=== PATIENT | male | born 1945 | race Hispanic/Latino ===

== ENCOUNTER 2017-08-13 06:12 | Day surgery (SDC) | payer MEDICARE, BC ==
[2017-08-08 12:33] VITALS: BMI 30.9
[2017-08-13] MEDS ORDERED: Lidocaine 2% Inj (20ml) ONE (06:42)
[2017-08-13] MEDS ORDERED: Midazolam 2 MG/2 ML VIAL ONE ×2 (06:43→07:16)
[2017-08-13] MEDS ORDERED: Phenylephrine 10 mg/ml Inj ONE (06:43)
[2017-08-13] MEDS ORDERED: Iodixanol 320 MG/ML 200 ML BOTTLE IV ONE (06:44)
[2017-08-13] MEDS ORDERED: Iodixanol 320 MG/ML 100 ML BOTTLE IV ONE (06:44)
[2017-08-13] MEDS ORDERED: Nitroglycerin 50mg in D5W 50 MG/250 ML BOTTLE IV ONE (06:44)
[2017-08-13] MEDS ORDERED: Iohexol 350mgl/ml 50 ML ONE (06:44)
[2017-08-13 06:56] LABS: BLOOD UREA NITROGEN 16 mg/dL (7-21); CALCIUM 9.4 mg/dL (8.4-10.5); GFR AFRICAN-AMERICAN > 60; GFR NON-AFRICAN AMERICAN > 60
[2017-08-13 07:00] LABS: BASO # 0.05 K/mm3 (0.0-2.0); BASO % 0.6 % (0.0-3.0); EOS # 0.4 (0.0-0.7); GRAN # 4.59 (1.4-6.5); GRAN % 55.5 % (50.0-68.0); HEMOGLOBIN 14.3 g/dL (14.0-18.0); LYMPH # 2.3 (1.2-3.4); LYMPH % 28.1 % (22.0-35.0); MEAN CELL VOLUME 89.5 fl (80.0-105.0); MEAN CORPUSCULAR HEMOGLOBIN 31.2 pg (25.0-35.0); MEAN CORPUSCULAR HGB CONC 34.8 g/dl (31.0-37.0); MEAN PLATELET VOLUME 9.5 fl (7.0-11.0); MONO # 0.9 (0.1-0.6); MONO % 10.8 % (1.0-6.0); RBC 4.59 10^6/uL (3.5-6.1); RED CELL DISTRIBUTION WIDTH 12.6 % (11.5-14.5); WHITE BLOOD COUNT 8.3 10^3/ul (4.5-11.0)
[2017-08-13 07:06] LABS: INR 1.02 (0.93-1.08); PARTIAL THROMBOPLASTIN TIME 30.6 Seconds (25.1-36.5); PROTHROMBIN TIME 11.7 SECONDS (9.4-12.5)
[2017-08-13 07:27] VITALS: RESP 18
[2017-08-13] MEDS ORDERED: Sodium Chloride 0.9% 1,000 ML IV SCH (09:15)
[2017-08-13 09:21] VITALS: TEMP 97.8
[2017-08-13 09:59] LABS: HDL CHOLESTEROL 47 mg/dL (29-60)
[2017-08-13 10:10] LABS: LDL CHOLESTEROL 104 mg/dL (0-129)
[2017-08-13 14:02] VITALS: BP 139/85; PULSE 57; O2SAT 97
--- NOTE | 2017-08-13 16:16 | CARDCATH ---
PROCEDURE DATE: 08/13/2017 HISTORY: The patient is a 71-year-old male with a history of hypertension who presents with chest pain and abnormal stress test. Because of this, cardiac catheterization is recommended. PROCEDURE: Left heart catheterization with coronary arteriography and left ventriculogram. The right femoral artery was cannulated with a 6-Guamanian sheath. There were no complications. I performed moderate sedation which included the presence of an independent trained observer that assisted in monitoring the patient's level of consciousness and physiologic status. After administration of Versed and fentanyl, my intra service time was 15 minutes. The findings on catheterization revealed a left ventricle that contracted normally. Estimated ejection fraction of 65%. His coronary anatomy revealed a right dominant circulation. The RCA revealed intimal irregularities without significant stenoses. The left main artery was unremarkable. The LAD was a small vessel and revealed intimal irregularities along with its diagonal vessels. The circumflex artery and obtuse marginal branches were free of significant disease. Angio-Seal was used to close the femoral artery site. The patient tolerated the procedure well. In summary, the procedure revealed atherosclerosis in the coronary tree with no critical lesions. LV function is normal. Given these findings, the patient's treatment should be an aspirin daily, a strict cardiac risk reduction program. The patient should have a statin therapy added to his regimen given his documented atherosclerosis. Royce Bobo MD
--- NOTE | 2017-08-13 20:29 | CARD ---
APPROVED REPORT EKG Measurement Heart [id number] <Conclusion> Normal sinus rhythm Normal ECG
== END 2017-08-13 14:15 | disposition home or self-care (01) ==
LOC: CATH 06:12
PROVIDERS: ATTEND Internal Medicine Cardiovascular Disease
DX: I20.0 Unstable angina (principal); I10 Essential (primary) hypertension; I48.91 Unspecified atrial fibrillation; I49.9 Cardiac arrhythmia, unspecified; R06.00 Dyspnea, unspecified
CPT/HCPCS: 36415; 80048; 80061; 85025; 85610; 85730; 86850; 86900; 93005; 93458; 99152; C1760; C1769; C1887; C2629; J1644; J2250; J3010; J7040; Q9966; Q9967

== ENCOUNTER 2017-10-12 20:45 | Inpatient (IN) | payer MEDICARE, BC ==
[2017-10-12 21:02] VITALS: BMI 32.3
[2017-10-12] MEDS ORDERED: Sodium Chloride 0.9% 1,000 ML IV STA (21:32)
--- NOTE | 2017-10-12 22:44 | ED PDOC ---
Arrival/HPI - General Chief Complaint: Fever Time Seen by Provider: 10/12/17 20:58 Historian: Patient - History of Present Illness Narrative History of Present Illness (Text): 10/12/17 22:29 71yo male with pmh of hypertension, BPH and afib bib EMS for chills, fever, nausea and vomiting s/p procedure. Patient states he had a green light laser surgery this morning for his BPH at [facility]. He started having chills and fever this evening. States he spoke with the Urologist that did the procedure and he was told to take Tylenol and if the fever gets to 101 go to the ED. Patient notes that the temperature improved with the Tylenol he took, but went up to 101 one hour after. He states he had an episode of vomiting x one enroute to the ED. He denies abdominal pain, hematuria, chest pain, SOB, diaphoresis, any other complaint. Past Medical History - Provider Review Nursing Documentation Reviewed: Yes - Infectious Disease Hx of Infectious Diseases: None - Cardiac Hx Atrial Fibrillation: Yes Hx Hypertension: Yes Hx Pacemaker: No - Neurological Hx Paralysis: No - Hematological/Oncological Hx Blood Transfusions: No - Musculoskeletal/Rheumatological Hx Musculoskeletal Disorders: Yes - Psychiatric Hx Emotional Abuse: No Hx Physical Abuse: No Hx Substance Use: No - Surgical History Other/Comment: cystoscopy. hernia. green light laser sx - Anesthesia Hx Anesthesia Reactions: No Hx Malignant Hyperthermia: No - Suicidal Assessment Feels Threatened In Home Enviroment: No Family/Social History - Physician Review Nursing Documentation Reviewed: Yes Family/Social History: Unknown Family HX Smoking Status: Never Smoked Hx Alcohol Use: Yes (5-6 DRINKS/WEEK) Frequency of alcohol use: Socially Hx Substance Use: No Allergies/Home Meds Allergies/Adverse Reactions: Allergies No Known Allergies Allergy (Verified 08/03/17 10:53) Home Medications: Home Meds Medication Instructions Recorded Confirmed Losartan [Cozaar] 50 mg PO DAILY 08/03/17 10/13/17 Mirabegron [Myrbetriq] 50 mg PO BID 08/03/17 10/13/17 Tamsulosin [Flomax] 0.4 mg PO BID 08/03/17 10/13/17 Ascorbic Acid [Vitamin C] 1,000 mg PO BID 08/08/17 10/13/17 Aspirin [Ecotrin] 81 mg PO DAILY 08/08/17 10/13/17 Cholecalciferol (Vitamin D3) 2,000 unit PO DAILY 08/08/17 10/13/17 [Vitamin D3] Multivitamin [Daily Johnie] 1 tab PO DAILY 08/08/17 10/13/17 Review of Systems - Physician Review All systems were reviewed & negative as marked: Yes - Review of Systems Constitutional: Fevers, Other (Chills) Eyes: Normal ENT: Normal Respiratory: Normal Cardiovascular: Normal Gastrointestinal: Nausea, Vomiting. absent: Abdominal Pain, Constipation, Diarrhea, Hematochezia, Hematemesis Genitourinary Male: Normal Musculoskeletal: Normal Skin: Normal Neurological: Normal Endocrine: Normal Hemo/Lymphatic: Normal Psychiatric: Normal Physical Exam Vital Signs Reviewed: Yes Vital Signs Temp Pulse Resp BP Pulse Ox 10/13/17 00:43 99.7 F H 89 18 135/65 95 10/12/17 21:30 99.2 F 100 H 18 164/94 H 99 Temperature: Afebrile Blood Pressure: Normal Pulse: Regular Respiratory Rate: Normal Appearance: Positive for: Well-Appearing, Non-Toxic, Comfortable Pain Distress: None Mental Status: Positive for: Alert and Oriented X 3 - Systems Exam Head: Present: Atraumatic, Normocephalic Pupils: Present: PERRL Extroacular Muscles: Present: EOMI Conjunctiva: Present: Normal Mouth: Present: Moist Mucous Membranes Neck: Present: Normal Range of Motion Respiratory/Chest: Present: Clear to Auscultation, Good Air Exchange. No: Respiratory Distress, Accessory Muscle Use Cardiovascular: Present: Regular Rate and Rhythm, Normal S1, S2. No: Murmurs Abdomen: No: Tenderness, Distention, Peritoneal Signs Back: Present: Normal Inspection Upper Extremity: Present: Normal Inspection. No: Cyanosis, Edema Lower Extremity: Present: Normal Inspection. No: Edema Neurological: Present: GCS=15, CN II-XII Intact, Speech Normal Skin: Present: Warm, Dry, Normal Color. No: Rashes Psychiatric: Present: Alert, Oriented x 3, Normal Insight, Normal Concentration Medical Decision Making ED Course and Treatment: 10/13/17 01:41 PT presented to ED febrile, but not lethargic. He was tachycardic. He had leukocytosis with elevated lactate and UTI. He met the criteria for sepsis and code sepsis was called. He was hydrated in ED. Rocephin and Vanco was ordered. He will be admitted for IV abx. EKG NSR @ 87bpm. Normal interval/axis CXR Case was DW Dr. Campos and pt was admitted to his service. He requested Dr. rowland consult and it was placed. Result and plan was DW the pt and he agreed. Case was also DW Dr. Lundberg, the urologist that did the green light laser procedure and he recommended admission for IV abx. - Lab Interpretations Lab Results: 10/12/17 22:48 10/12/17 22:48 Lab Results 10/12/17 22:48: Sodium 140, Chloride 102, Potassium 4.0, Carbon Dioxide 24, Anion Gap 17, BUN 18, Creatinine 0.9, Est GFR ( Amer) > 60, Est GFR (Non- Af Amer) > 60, Random Glucose 117 H, Calcium 9.1, Phosphorus 1.6 L, Magnesium 1.7, Total Bilirubin 1.3, AST 30, ALT 41, Alkaline Phosphatase 90, Total Protein 6.7, Albumin 3.9, Globulin 2.8, Albumin/Globulin Ratio 1.4 10/12/17 22:48: PT 12.1, INR 1.06, APTT 26.2 10/12/17 22:48: WBC 17.3 H D, RBC 4.43, Hgb 13.9 L, Hct 39.8 L, MCV 89.8, MCH 31.4, MCHC 34.9, RDW 12.3, Plt Count 162, MPV 9.5, Gran % 92.9 H, Lymph % (Auto ) 2.7 L, Cole % (Auto) 4.1, Eos % (Auto) 0.1 L, Baso % (Auto) 0.2, Gran # 16.11 H, Lymph # (Auto) 0.5 L, Cole # (Auto) 0.7 H, Eos # (Auto) 0.0, Baso # (Auto) 0.03, Neutrophils % (Manual) Pending, Lymphocytes % (Manual) Pending, Monocytes % (Manual) Pending 10/12/17 22:44: pO2 75 H, VBG pH 7.43, VBG pCO2 37.0 L, VBG HCO3 24.6, VBG Total CO2 25.7, VBG O2 Sat (Calc) 98.4 H, VBG Base Excess 0.5, VBG Potassium 3.9 , Sodium 134.0, Chloride 103.0, Glucose 121 H, Lactate 2.2 H, FiO2 21.0, Venous Blood Potassium 3.9 10/12/17 22:32: Urine Color Dark red, Urine Appearance Bloody, Urine pH 6.0, Ur Specific [place] 1.025, Urine Protein >=300 H, Urine Glucose (UA) 100 H, Urine Ketones Negative, Urine Blood Large H, Urine Nitrate Positive H, Urine Bilirubin Negative, Urine Urobilinogen 1.0 H, Ur Leukocyte Esterase Small H, Urine RBC Tntc, Urine WBC 5 - 10, Ur Epithelial Cells 6 - 8, Urine Bacteria Trace - Medication Orders Current Medication Orders: Discontinued Medications Sodium Chloride (Sodium Chloride 0.9%) 1,000 mls @ 999 mls/hr IV .Q1H1M STA Stop: 10/12/17 22:32 Last Admin: 10/12/17 22:41 Dose: 999 mls/hr eMAR Start Stop Document 10/12/17 22:41 (Rec: 10/12/17 22:41 [facility] [id number] Intravenous Solution Start Date 10/12/17 Start Time 22:41 Vancomycin HCl (Vancomycin 1gm) 1 gm in 250 mls @ 167 mls/hr IVPB STAT STA PRN Reason: Protocol Stop: 10/13/17 00:48 Last Admin: 10/12/17 23:20 Dose: 167 mls/hr eMAR Start Stop Document 10/12/17 23:20 (Rec: 10/13/17 00:30 [facility] [id number] Intravenous Solution Start Date 10/13/17 Start Time 23:20 Ceftriaxone Sodium (Rocephin 1 Gram Ivpb) 1 gm in 100 mls @ 200 mls/hr IVPB STAT STA PRN Reason: Protocol Stop: 10/12/17 23:54 Ibuprofen (Motrin Tab) 600 mg PO STAT STA Stop: 10/12/17 21:59 Last Admin: 10/12/17 22:29 Dose: 600 mg MAR Pain/Vitals Document 10/12/17 22:29 (Rec: 10/12/17 22:41 [facility] [id number]) Pain Reassessment Is This A Pain ReAssessment? Yes Location Upper or Lower Lower Pain Location Body Site Back Intensity 8 Scale Used Numeric Re-Assess: MAR Pain/Vitals Document 10/12/17 23:29 RG (Rec: 10/13/17 00:45 RG [id number]) Pain Reassessment Is This A Pain ReAssessment? Yes Sleep Is patient sleeping during reassessment? Yes Disposition/Present on Arrival - Present on Arrival Any Indicators Present on Arrival: No History of DVT/PE: No History of Uncontrolled Diabetes: No Urinary Catheter: No History of Decub. Ulcer: No History Surgical Site Infection Following: None - Disposition Have Diagnosis and Disposition been Completed?: Yes Diagnosis: Sepsis, UTI (urinary tract infection) Disposition: HOSPITALIZED Disposition Time: 20:00 Patient Plan: Admission Condition: FAIR
[2017-10-12 22:51] LABS: URINE APPEARANCE BLOODY (CLEAR); URINE BILIRUBIN NEGATIVE (NEGATIVE); URINE BLOOD LARGE (NEGATIVE); URINE COLOR DARK RED (YELLOW); URINE GLUCOSE (UA) 100 mg/dL (NEGATIVE); URINE LEUKOCYTE ESTERASE SMALL Leu/uL (NEGATIVE); URINE PROTEIN >=300 mg/dL (<30 mg/dL)
[2017-10-12 22:52] LABS: VENOUS BLOOD GAS BASE EXCESS 0.5 mmol/L (0.0-2.0); VENOUS BLOOD GAS PO2 75 mm/Hg (30-55); VENOUS BLOOD PH 7.43 (7.32-7.43)
[2017-10-12 22:52] LABS: URINE BACTERIA TRACE (NEG); URINE RBC TNTC /hpf (0-2)
[2017-10-12 23:00] LABS: BASO # 0.03 K/mm3 (0.0-2.0); BASO % 0.2 % (0.0-3.0); EOS % 0.1 % (1.5-5.0); GRAN # 16.11 (1.4-6.5); GRAN % 92.9 % (50.0-68.0); HEMOGLOBIN 13.9 g/dL (14.0-18.0); LYMPH # 0.5 (1.2-3.4); LYMPH % 2.7 % (22.0-35.0); MEAN CELL VOLUME 89.8 fl (80.0-105.0); MEAN CORPUSCULAR HEMOGLOBIN 31.4 pg (25.0-35.0); MEAN CORPUSCULAR HGB CONC 34.9 g/dl (31.0-37.0); MEAN PLATELET VOLUME 9.5 fl (7.0-11.0); MONO # 0.7 (0.1-0.6); MONO % 4.1 % (1.0-6.0); PLATELET COUNT 162 10^3/uL (120.0-450.0); RBC 4.43 10^6/uL (3.5-6.1); RED CELL DISTRIBUTION WIDTH 12.3 % (11.5-14.5); WHITE BLOOD COUNT 17.3 10^3/ul (4.5-11.0)
[2017-10-12 23:07] LABS: INR 1.06 (0.93-1.08); PARTIAL THROMBOPLASTIN TIME 26.2 Seconds (25.1-36.5); PROTHROMBIN TIME 12.1 SECONDS (9.4-12.5)
[2017-10-12 23:13] LABS: ALB/GLOB RATIO 1.4 (1.1-1.8); ALBUMIN 3.9 g/dL (3.0-4.8); ALT/SGPT 41 U/L (7-56); AST/SGOT 30 U/L (17-59); BLOOD UREA NITROGEN 18 mg/dL (7-21); CALCIUM 9.1 mg/dL (8.4-10.5); GFR AFRICAN-AMERICAN > 60; GFR NON-AFRICAN AMERICAN > 60
[2017-10-12] MEDS ORDERED: Vancomycin 1gm in NS 250ml 1 GM/250 ML BAG IVPB STA (23:19)
[2017-10-12] MEDS ORDERED: Piperacillin/Tazobact 3.375 gm 100 ML IVPB STA (23:19)
[2017-10-12] MEDS ORDERED: cefTRIAXone 1 gm 1 GM/100 ML BAG IVPB STA (23:25)
[2017-10-13] MEDS ORDERED: Sodium Chloride 0.45% 1,000 ML IV ONE (01:40)
[2017-10-13 02:25] LABS: VENOUS BLOOD GAS BASE EXCESS 0.9 mmol/L (0.0-2.0); VENOUS BLOOD GAS PO2 18 mm/Hg (30-55); VENOUS BLOOD PH 7.34 (7.32-7.43)
[2017-10-13 02:42] LABS: BAND 9 % (0-2); EOSINOPHIL 1 % (0.0-3.0); LYMPHOCYTE 6 % (22.0-35.0); MONOCYTE 4 % (1.0-6.0); NEUTROPHIL 80 % (50.0-70.0); PLATELET ESTIMATE NORMAL (NORMAL)
[2017-10-13] MEDS: Meropenem IV 1 gm in NS 50 ML IVPB SCH ×3 (09:39→21:41)
[2017-10-13] MEDS: Sodium Chloride 0.45% 1,000 ML IV ONE ×2 (09:41→13:35)
[2017-10-13] MEDS: Cholecalciferol 1,000 INTLU TAB PO SCH (09:41)
--- NOTE | 2017-10-13 14:09 | CARD ---
APPROVED REPORT EKG Measurement Heart [id number] <Conclusion> Normal sinus rhythm Normal ECG
--- NOTE | 2017-10-13 15:49 | CON ---
DATE: 10/13/2017 The patient is seen earlier this morning. CHIEF COMPLAINT: Fever x1 day. HISTORY OF PRESENT ILLNESS: This is a 71-year-old male with past medical history of hypertension, AFib, BPH, who has had a procedure done at [facility] yesterday. He had a GreenLight laser surgery yesterday morning for his benign prostate hypertrophy. He has had biopsies 5 times in the past, it has all been negative for a malignancy. Yesterday, he had the procedure at [facility] [place] and a few hours later, specifically around 6 hours later, the patient developed a temperature of 101, he called the surgeon. Surgeon advised him to take a Tylenol, which he did, but after Tylenol wore off, the patient had another fever and he called the surgeon backup, the urologist and he at that time advised him to go to the emergency room. He came to the emergency room and admitted for further care. At this time, he states he is feeling better. He had a temperature of 101 at home. No abdominal pain. No diarrhea or constipation. No bright red blood per rectum. No melena. He does have a Allan and Allan stayed in yesterday. Postprocedure, he is scheduled to come out in the morning. REIVEW OF SYSTEMS: Twelve-point review of systems is performed. PAST MEDICAL HISTORY: Significant for BPH, hypertension, atrial fibrillation. PAST SURGICAL HISTORY: Significant for cardiac catheterization and prostate biopsies. MEDICATIONS AT HOME: Include the patient to be on Flomax, Myrbetriq, Cozaar, aspirin, vitamin C. ALLERGIES: THE PATIENT HAS NO KNOWN ALLERGIES. PHYSICAL EXAMINATION: GENERAL: On exam, he is in bed, answering questions appropriately with a temperature of 99.7, T max was 101 at home, heart rate was up to 100, respiratory rate of 18 up to 20, blood pressure 135/65 and O2 saturation at 95% saturating. HEENT: Examination of HEENT is unremarkable. NECK: Supple. LUNGS: Have decreased breath sounds. HEART: Normal S1, S2. ABDOMEN: Soft, nontender. No rebound. No guarding. No masses. He does have a Allan catheter. LABORATORY DATA: Laboratory examination reveals a white count of 17,300, hemoglobin of 13, platelets of 162. Chemistries reveals a BUN of 18, creatinine of 0.9. Urinalysis is noted with 5-10 wbc's, too numerous to count rbc's, proteinuria of 300, leukocyte esterase is positive, nitrites are positive. Blood cultures have been ordered. Urine cultures have been ordered. ASSESSMENT AND PLAN: A 71-year-old male with hypertension, atrial fibrillation, benign prostatic hypertrophy, status post procedure, cystoscopy at [facility] [place] yesterday, the [facility] in [place] and post procedure developed fever of 101, tachycardia, white count of 17,000, has a Allan catheter with #1 is sepsis secondary to urine as the source post procedure. I will start the patient on meropenem pending blood cultures, urine cultures. Due to an elevated blood sugar, we will order a hemoglobin A1c and we will make further recommendations upon availability of initial results and we will follow closely with you. Case discussed with Dr. Robin Campos. Silver Martin MD
--- NOTE | 2017-10-13 19:53 | CP.PCM.PN ---
Subjective - Date & Time of Evaluation Date of Evaluation: 10/13/17 Time of Evaluation: 20:00 (Patient was seen earlier.) - Subjective Subjective: Patient was seen for blood pressure 210/90. Complains of sweating. No other complaints. Denies headache, dizziness, heaviness, chest pain, sob. Medical record was reviewed. This 71 year old white man is admitted with fever, chills , nausea, vomiting, S /P Green light laser procedure of prostate, Has PMH of HTN, BPH , atrial fibrillation, cystoscopy , hernia repair, herniated disc surgery. Is on Cozaar 50 mg PO daily. Objective - Vital Signs/Intake and Output Vital Signs (last 24 hours): Temp Pulse Resp BP Pulse Ox 99.4 F 70 19 155/82 H 98 10/13/17 19:36 10/13/17 18:00 10/13/17 18:00 10/13/17 18:00 10/13/17 18:00 Intake and Output: 10/13/17 10/14/17 18:59 06:59 Intake Total 960 Output Total 2125 Balance -1165 - Medications Medications: Current Medications Acetaminophen (Tylenol 325mg Tab) 650 mg PO Q4H PRN PRN Reason: Pain, Mild (1-3) Last Admin: 10/13/17 19:36 Dose: 650 mg Ascorbic Acid (Vitamin C 500 Mg Tab) 1,000 mg PO BID [facility] Last Admin: 10/13/17 17:24 Dose: 1,000 mg Aspirin (Ecotrin) 81 mg PO DAILY [facility] Last Admin: 10/13/17 09:39 Dose: 81 mg Cholecalciferol (Vitamin D) 2,000 intlu PO DAILY [facility] Last Admin: 10/13/17 09:41 Dose: 2,000 intlu Sodium Chloride (Sodium Chloride 0.45%) 1,000 mls @ 40 mls/hr IV .Q24H ONE Stop: 10/14/17 01:39 Last Admin: 10/13/17 13:35 Dose: 40 mls/hr Meropenem (Merrem Iv 1 Gm Premix) 50 mls @ 100 mls/hr IVPB Q8 LEONOR PRN Reason: Protocol Stop: 10/22/17 08:31 Last Admin: 10/13/17 13:30 Dose: 100 mls/hr Losartan Potassium (Cozaar) 50 mg PO DAILY [facility] Last Admin: 10/13/17 09:38 Dose: 50 mg Tamsulosin HCl (Flomax) 0.4 mg PO BID [facility] Last Admin: 10/13/17 17:24 Dose: 0.4 mg - Labs Labs: PT 12.1 SECONDS (9.4-12.5) 10/12/17 22:48 INR 1.06 (0.93-1.08) 10/12/17 22:48 APTT 26.2 Seconds (25.1-36.5) 10/12/17 22:48 Micro Results 10/12/17 22:48 Blood Blood Culture - Preliminary NO GROWTH AFTER 24 HOURS Most Recent Lab Values WBC 17.3 10^3/ul (4.5-11.0) H D 10/12/17 22:48 RBC 4.43 10^6/uL (3.5-6.1) 10/12/17 22:48 Hgb 13.9 g/dL (14.0-18.0) L 10/12/17 22:48 Hct 39.8 % (42.0-52.0) L 10/12/17 22:48 MCV 89.8 fl (80.0-105.0) 10/12/17 22:48 MCH 31.4 pg (25.0-35.0) 10/12/17 22:48 MCHC 34.9 g/dl (31.0-37.0) 10/12/17 22:48 RDW 12.3 % (11.5-14.5) 10/12/17 22:48 Plt Count 162 10^3/uL (120.0-450.0) 10/12/17 22:48 MPV 9.5 fl (7.0-11.0) 10/12/17 22:48 Gran % 92.9 % (50.0-68.0) H 10/12/17 22:48 Lymph % (Auto) 2.7 % (22.0-35.0) L 10/12/17 22:48 [place] % (Auto) 4.1 % (1.0-6.0) 10/12/17 22:48 Eos % (Auto) 0.1 % (1.5-5.0) L 10/12/17 22:48 Baso % (Auto) 0.2 % (0.0-3.0) 10/12/17 22:48 Gran # 16.11 (1.4-6.5) H 10/12/17 22:48 Lymph # (Auto) 0.5 (1.2-3.4) L 10/12/17 22:48 [place] # (Auto) 0.7 (0.1-0.6) H 10/12/17 22:48 Eos # (Auto) 0.0 (0.0-0.7) 10/12/17 22:48 Baso # (Auto) 0.03 K/mm3 (0.0-2.0) 10/12/17 22:48 Neutrophils % (Manual) 80 % (50.0-70.0) H 10/12/17 22:48 Band Neutrophils % 9 % (0-2) H 10/12/17 22:48 Lymphocytes % (Manual) 6 % (22.0-35.0) L 10/12/17 22:48 Monocytes % (Manual) 4 % (1.0-6.0) 10/12/17 22:48 Eosinophils % (Manual) 1 % (0.0-3.0) 10/12/17 22:48 Platelet Evaluation Normal (NORMAL) 10/12/17 22:48 PT 12.1 SECONDS (9.4-12.5) 10/12/17 22:48 INR 1.06 (0.93-1.08) 10/12/17 22:48 APTT 26.2 Seconds (25.1-36.5) 10/12/17 22:48 pO2 18 mm/Hg (30-55) L 10/13/17 02:10 VBG pH 7.34 (7.32-7.43) 10/13/17 02:10 VBG pCO2 51.0 (40-60) 10/13/17 02:10 VBG HCO3 27.5 mmol/l (21-28) 10/13/17 02:10 VBG Total CO2 29.1 mmol.L (22-28) H 10/13/17 02:10 VBG O2 Sat (Calc) 40.7 % (40-65) 10/13/17 02:10 VBG Base Excess 0.9 mmol/L (0.0-2.0) 10/13/17 02:10 VBG Potassium 4.0 mmol/L (3.6-5.2) 10/13/17 02:10 Sodium 136.0 mmol/L (132-148) 10/13/17 02:10 Chloride 104.0 mmol/L (98-107) 10/13/17 02:10 Glucose 159 mg/dl (75-110) H 10/13/17 02:10 Lactate 1.6 mmol/L (0.7-2.1) 10/13/17 02:10 FiO2 21.0 % 10/13/17 02:10 Sodium 140 mmol/L (132-148) 10/12/17 22:48 Potassium 4.0 mmol/L (3.6-5.0) 10/12/17 22:48 Chloride 102 mmol/L (98-107) 10/12/17 22:48 Carbon Dioxide 24 mmol/L (21-33) 10/12/17 22:48 Anion Gap 17 (10-20) 10/12/17 22:48 BUN 18 mg/dL (7-21) 10/12/17 22:48 Creatinine 0.9 mg/dl (0.8-1.5) 10/12/17 22:48 Est GFR ( Amer) > 60 10/12/17 22:48 Est GFR (Non-Af Amer) > 60 10/12/17 22:48 Random Glucose 117 mg/dL (70-110) H 10/12/17 22:48 Calcium 9.1 mg/dL (8.4-10.5) 10/12/17 22:48 Phosphorus 1.6 mg/dL (2.5-4.5) L 10/12/17 22:48 Magnesium 1.7 mg/dL (1.7-2.2) 10/12/17 22:48 Total Bilirubin 1.3 mg/dL (0.2-1.3) 10/12/17 22:48 AST 30 U/L (17-59) 10/12/17 22:48 ALT 41 U/L (7-56) 10/12/17 22:48 Alkaline Phosphatase 90 U/L (38-126) 10/12/17 22:48 Total Protein 6.7 g/dL (5.8-8.3) 10/12/17 22:48 Albumin 3.9 g/dL (3.0-4.8) 10/12/17 22:48 Globulin 2.8 gm/dL 10/12/17 22:48 Albumin/Globulin Ratio 1.4 (1.1-1.8) 10/12/17 22:48 Venous Blood Potassium 4.0 mmol/L (3.6-5.2) 10/13/17 02:10 Urine Color Dark red (YELLOW) 10/12/17 22:32 Urine Appearance Bloody (CLEAR) 10/12/17 22:32 Urine pH 6.0 (4.7-8.0) 10/12/17 22:32 Ur Specific [place] 1.025 (1.005-1.035) 10/12/17 22:32 Urine Protein >=300 mg/dL (<30 mg/dL) H 10/12/17 22:32 Urine Glucose (UA) 100 mg/dL (NEGATIVE) H 10/12/17 22:32 Urine Ketones Negative mg/dL (NEGATIVE) 10/12/17 22:32 Urine Blood Large (NEGATIVE) H 10/12/17 22:32 Urine Nitrate Positive (NEGATIVE) H 10/12/17 22:32 Urine Bilirubin Negative (NEGATIVE) 10/12/17 22:32 Urine Urobilinogen 1.0 E.U./dL (<1 E.U./dL) H 10/12/17 22:32 Ur Leukocyte Esterase Small Alla/uL (NEGATIVE) H 10/12/17 22:32 Urine RBC Tntc /hpf (0-2) 10/12/17 22:32 Urine WBC 5 - 10 /hpf (0-6) 10/12/17 22:32 Ur Epithelial Cells 6 - 8 /hpf (0-5) 10/12/17 22:32 Urine Bacteria Trace (NEG) 10/12/17 22:32 - Constitutional Appears: Well, No Acute Distress - Head Exam Head Exam: ATRAUMATIC, NORMAL INSPECTION, NORMOCEPHALIC Additional comments: Obese. - Eye Exam Eye Exam: Normal appearance - ENT Exam ENT Exam: Normal External Ear Exam - Neck Exam Neck Exam: Normal Inspection - Respiratory Exam Respiratory Exam: NORMAL BREATHING PATTERN - Cardiovascular Exam Cardiovascular Exam: absent: JVD - GI/Abdominal Exam GI & Abdominal Exam: absent: Distended - Rectal Exam Rectal Exam: Deferred - Exam Additional comments: Deferred. - Extremities Exam Extremities Exam: Normal Inspection - Back Exam Back Exam: NORMAL INSPECTION - Neurological Exam Neurological Exam: Alert, Awake, Oriented x3 - Psychiatric Exam Psychiatric exam: Normal Affect, Normal Mood - Skin Skin Exam: Normal Color Assessment and Plan - Assessment and Plan (Free Text) Assessment: Elevated blood pressure reading. HTN. BPH. Atrial fibrillation. Obesity. Hypophosphatemia. Plan: Clonidine 0.3 mg PO stat-------> BP came down to 124/71. K phos packet as ordered. Continue present management.
--- NOTE | 2017-10-13 21:30 | HP ---
HISTORY OF PRESENT ILLNESS: I know Jose for years in the office. He is a very nice man. He is 71 years old. He presents being brought in by ambulance with fever, chills, nausea, vomiting, status post procedure of GreenLight laser of his prostate at [facility]. Chills did not go away; he took some Tylenol at home; the temperature went over 101. He said he is going to come to the [facility] and he is here, very uncomfortable. PAST MEDICAL HISTORY: He has got a past medical history of hypertension, BPH, AFib. He has got low back issues. He is soon to go for three herniated disk procedures in the next 3 months. He had a cystoscopy, hernia repair, GreenLight laser treatment. FAMILY HISTORY: Unknown family history. SOCIAL HISTORY: Never smoked. He drinks a couple of beers a week socially. No substance abuse. ALLERGIES: NO KNOWN DRUG ALLERGIES. MEDICATIONS: He is on Cozaar, Myrbetriq, Flomax, vitamin C, Ecotrin, vitamin D, and multivitamin daily. REVIEW OF SYSTEMS: He is having fevers and chills. No vision changes or hearing changes. No sore throat. No chest pain. He does have nausea, vomiting. No constipation or diarrhea. No skin issues. No neurological issues. No anxiety issues. PHYSICAL EXAMINATION: VITAL SIGNS: He has a 99.7 temperature, 100 pulse, 18 respiratory rate, 164/94 blood pressure, 95% O2 sat. GENERAL: He is fairly well appearing, a little toxic from the fevers and chills. Alert and oriented x3. HEENT: Normocephalic atraumatic. Extraocular muscles are intact. Pupils are equal and reactive to light and accommodation. Throat is moist. NECK: Supple. Thyroid midline. No palpable appreciable lymphadenopathy. HEART: Regular rate. Normal S1, S2. LUNGS: Decreased breath sounds, but clear to auscultation. ABDOMEN: Soft, nontender. Positive bowel sounds. EXTREMITIES: No edema. NEUROLOGICAL: GCS is 15. Cranial nerves II through XII grossly intact. SKIN: Warm and dry. No apparent rashes appreciated. LABORATORY DATA: He had some tests done. He has a 140 sodium, potassium 4, BUN 18, creatinine 0.9, GFR is greater than 60, sugar is 117, calcium 9.1, phosphorus 1.6, magnesium 1.7. Total bili is 1.3, AST is 30, ALT is 41, alk phos is total protein 6.7, albumin 3.9. He had a 2.2 lactate on admission. INR 1.06. His white count was elevated at 17.3, hemoglobin 13.9, hematocrit 39.8, platelets 162. PLAN: He is going to have consults with Infectious Disease and Urology. He is on IV fluids, Cozaar, Ecotrin, Flomax, Merrem IV, vitamin C, and vitamin D. Continue with aggressive treatment and care. He is here for sepsis, UTI, fever, chills, status post procedure. Robin Campos DO MTDD
[2017-10-14] MEDS: Meropenem IV 1 gm in NS 50 ML IVPB SCH ×3 (05:44→21:24)
[2017-10-14 07:03] LABS: HEMOGLOBIN 12.7 g/dL (14.0-18.0); MEAN CELL VOLUME 91.7 fl (80.0-105.0); MEAN CORPUSCULAR HEMOGLOBIN 30.8 pg (25.0-35.0); MEAN CORPUSCULAR HGB CONC 33.6 g/dl (31.0-37.0); MEAN PLATELET VOLUME 9.6 fl (7.0-11.0); RBC 4.12 10^6/uL (3.5-6.1); RED CELL DISTRIBUTION WIDTH 12.6 % (11.5-14.5); WHITE BLOOD COUNT 12.3 10^3/ul (4.5-11.0)
[2017-10-14 07:26] LABS: ALB/GLOB RATIO 1.3 (1.1-1.8); ALBUMIN 3.4 g/dL (3.0-4.8); ALT/SGPT 28 U/L (7-56); AST/SGOT 26 U/L (17-59); BLOOD UREA NITROGEN 14 mg/dL (7-21); CALCIUM 8.8 mg/dL (8.4-10.5); GFR AFRICAN-AMERICAN > 60; GFR NON-AFRICAN AMERICAN > 60
[2017-10-14] MEDS: Potassium & Sodium Phosphate PO SCH ×3 (10:36→18:07)
[2017-10-14] MEDS: Cholecalciferol 1,000 INTLU TAB PO SCH (11:49)
[2017-10-14] MEDS ORDERED: Iohexol 240 (50 ml) ONE (11:50)
--- NOTE | 2017-10-14 16:41 | CT ---
PROCEDURE: CT Abdomen and Pelvis with contrast HISTORY: Obstruction/ collection COMPARISON: 11/20/2014 CT abdomen and pelvis 10/22/2015 renal ultrasound TECHNIQUE: Contrast dose: Oral contrast only. Radiation dose: Total exam DLP = 969.18 mGy-cm. This CT exam was performed using one or more of the following dose reduction techniques: Automated exposure control, adjustment of the mA and/or kV according to patient size, and/or use of iterative reconstruction technique. FINDINGS: LOWER THORAX: Unremarkable. LIVER: Hepatic steatosis. No focal masses. No intrahepatic bile duct dilatation or perihepatic ascites. GALLBLADDER AND BILE DUCTS: Unremarkable. PANCREAS: Unremarkable. No gross lesion or ductal dilatation. SPLEEN: Unremarkable. ADRENALS: Unremarkable KIDNEYS AND URETERS: Unremarkable. No hydronephrosis. No solid mass. Incidental finding(s): Simple cyst lower pole left kidney parapelvic cysts left kidney findings confirmed on prior renal ultrasound performed 10/22/2015 VASCULATURE: Unremarkable. No aortic aneurysm. BOWEL: Diverticulosis without an acute inflammatory component or other associated pathologic process. APPENDIX: Normal appendix. PERITONEUM: Unremarkable. No free fluid. No free air. LYMPH NODES: Unremarkable. No enlarged lymph nodes. BLADDER: 8 distended Allan catheter balloon fills the entire urinary bladder which is decompressed. Incidental finding(s): Posterior-lateral (left) urinary bladder diverticulum REPRODUCTIVE: Unremarkable. BONES: No acute fracture. OTHER FINDINGS: None. IMPRESSION: No acute findings related to/accounting for the clinical presentation. Additional benign and/or incidental findings described above.
--- NOTE | 2017-10-14 17:06 | PN ---
DATE: 10/14/2017 SUBJECTIVE: Patient is in bed, in no acute distress, nontoxic. PHYSICAL EXAMINATION: VITAL SIGNS: Temperature is 99, blood pressure is 210/90, respiratory rate of 20, heart rate of 100. HEENT: Unremarkable. NECK: Supple. LUNGS: Decreased breath sounds. HEART: Normal S1, S2. ABDOMEN: Soft, nontender. LABORATORY EXAMINATION: Reveals a white count of 12,300, hemoglobin of 12, and platelets of 142. BUN of 14, creatinine of 0.9. HIV is negative. Blood cultures are negative. Urine cultures are negative. Review of medications reveals the patient to be on meropenem. ASSESSMENT AND PLAN: A 71-year-old male who was seen earlier today in [facility], bed 2, with a history of hypertension, atrial fibrillation, benign prostatic hypertrophy, status post procedure cystoscopy [facility] 2 days ago, admitted now with leukocytosis. 1. Sepsis secondary to cystoscopy procedure, on meropenem. Awaiting for blood and urine culture results and thus far, every cultures are reported to be negative and HIV is reported to be negative. White count is improved. The patient is still complaining about chills. We will order a CT of the abdomen and pelvis to rule out any obstruction . We will make further recommendations once final culture results and CAT scan of the abdomen and pelvis are available Silver Martin MD
--- NOTE | 2017-10-14 17:12 | PN ---
DATE: 10/14/2017 SUBJECTIVE: I saw him this morning sitting out of bed to chair. He is still on IV antibiotics. He is having some loose bowels, not exactly diarrhea, yet we are going to check up for C. diff, to be from the antibiotics. Otherwise, he had some sweats last night, chills and had a low-grade temp. PHYSICAL EXAMINATION: GENERAL: He is sitting out of bed, comfortable right now, he did eat lunch. VITAL SIGNS: He has 98.1 temp now, he has 60 pulse, 124/71 blood pressure, much better than it was the other night, it was 210/90 and 208/92, now it is 124/71, his respiratory rate is 18, he has 97% O2 sat on room air. HEENT: Head is atraumatic, normocephalic. HEART: Regular rate. LUNGS: Clear to auscultation. ABDOMEN: Soft, obese, nontender. EXTREMITIES: No edema. MEDICATIONS: He is currently on Cozaar, Ecotrin, Flomax, Merrem IV, Motrin, Neutra-Phos, Tylenol, vitamin C, vitamin D. LABORATORY DATA: His white count went from 17, it is now down to 12.3, it is in the right direction. He has 12.7 hemoglobin, 37.8 hematocrit with 142 platelets. His lactate was 2.2, it is now down to 1.6, improving. He has 142 sodium, potassium is 4.3, BUN 40, creatinine 0.9, GFR is greater than 60, sugar is 114, calcium is 8.8, total bilirubin is 1, AST is 26, ALT is 28, alkaline phosphatase 73, total protein is 5.9. Urine was positive nitrite, rbc's are too numerous to count, trace bacteria. HIV was nonreactive. ASSESSMENT AND PLAN: He is being seen by Dr. Martin, Infectious Disease doctor. He is here for sepsis, urinary tract infection picture with fever, chills, elevated temperature of 103, status post a urological procedure and hopefully, he will continue to improve. We will check up labs tomorrow. He is out of bed to chair. We will check up for Clostridium difficile. Robin Campos DO [facility] # [id number]
--- NOTE | 2017-10-15 05:36 | CP.PCM.PN ---
Subjective - Date & Time of Evaluation Date of Evaluation: 10/15/17 Time of Evaluation: 05:36 - Subjective Subjective: Seen for elevated BP 180/90. Has no complaints. Denies headache, dizziness, heaviness in the chest , anxiety. Medical record was reviewed. PMH of HTN, BPH , atrial fibrillation, cystoscopy , hernia repair, herniated disc surgery. He is on Cozaar 50 mg PO daily. Objective - Vital Signs/Intake and Output Vital Signs (last 24 hours): Temp Pulse Resp BP Pulse Ox 98.1 F 72 19 167/91 H 95 10/14/17 22:00 10/14/17 18:00 10/14/17 18:00 10/14/17 22:00 10/14/17 18:00 Intake and Output: 10/14/17 10/15/17 18:59 06:59 Intake Total 600 Output Total 1800 1100 Balance -1200 -1100 - Medications Medications: Current Medications Acetaminophen (Tylenol 325mg Tab) 650 mg PO Q4H PRN PRN Reason: Pain, Mild (1-3) Last Admin: 10/14/17 18:07 Dose: 650 mg Ascorbic Acid (Vitamin C 500 Mg Tab) 1,000 mg PO BID [facility] Last Admin: 10/14/17 18:07 Dose: 1,000 mg Aspirin (Ecotrin) 81 mg PO DAILY [facility] Last Admin: 10/14/17 10:35 Dose: 81 mg Cholecalciferol (Vitamin D) 2,000 intlu PO DAILY [facility] Last Admin: 10/14/17 11:49 Dose: 2,000 intlu Meropenem (Merrem Iv 1 Gm Premix) 50 mls @ 100 mls/hr IVPB Q8 [facility] PRN Reason: Protocol Stop: 10/22/17 08:31 Last Admin: 10/14/17 21:24 Dose: 100 mls/hr Ibuprofen (Motrin Tab) 600 mg PO Q6H PRN PRN Reason: Pain, moderate (4-7) Last Admin: 10/14/17 17:17 Dose: 600 mg Losartan Potassium (Cozaar) 50 mg PO DAILY [facility] Last Admin: 10/14/17 10:33 Dose: 50 mg Potassium Phos/Sodium Phos (Neutra-Phos) 1 pkt PO TID [facility] Stop: 10/16/17 10:01 Last Admin: 10/14/17 18:07 Dose: 1 pkt Tamsulosin HCl (Flomax) 0.4 mg PO BID [facility] Last Admin: 10/14/17 18:07 Dose: 0.4 mg - Labs Labs: 10/14/17 06:30 10/14/17 06:30 PT 12.1 SECONDS (9.4-12.5) 10/12/17 22:48 INR 1.06 (0.93-1.08) 10/12/17 22:48 APTT 26.2 Seconds (25.1-36.5) 10/12/17 22:48 - Constitutional Appears: Well, No Acute Distress - Head Exam Head Exam: ATRAUMATIC, NORMAL INSPECTION, NORMOCEPHALIC - Eye Exam Eye Exam: Normal appearance - ENT Exam ENT Exam: Normal External Ear Exam - Neck Exam Neck Exam: Normal Inspection - Respiratory Exam Respiratory Exam: NORMAL BREATHING PATTERN - Cardiovascular Exam Cardiovascular Exam: absent: JVD - GI/Abdominal Exam GI & Abdominal Exam: absent: Distended - Rectal Exam Rectal Exam: Deferred - Exam Additional comments: Deferred. - Extremities Exam Extremities Exam: Normal Inspection - Back Exam Back Exam: NORMAL INSPECTION - Neurological Exam Neurological Exam: Alert, Awake, Oriented x3 - Psychiatric Exam Psychiatric exam: Normal Affect, Normal Mood - Skin Skin Exam: Normal Color Assessment and Plan - Assessment and Plan (Free Text) Assessment: Elevated blood pressure reading. BPH. Atrial fibrillation. HTN. Obesity. Plan: Clonidine 0.2 mg PO x 1. Continue present management.
[2017-10-15] MEDS: Meropenem IV 1 gm in NS 50 ML IVPB SCH ×2 (05:45→13:32)
[2017-10-15 05:52] VITALS: TEMP 98.8
[2017-10-15 06:36] VITALS: PULSE 71; RESP 18; O2SAT 96
[2017-10-15 07:06] LABS: HEMOGLOBIN 13.7 g/dL (14.0-18.0); MEAN CELL VOLUME 89.6 fl (80.0-105.0); MEAN CORPUSCULAR HEMOGLOBIN 31.1 pg (25.0-35.0); MEAN CORPUSCULAR HGB CONC 34.7 g/dl (31.0-37.0); MEAN PLATELET VOLUME 9.5 fl (7.0-11.0); RBC 4.41 10^6/uL (3.5-6.1); RED CELL DISTRIBUTION WIDTH 12.4 % (11.5-14.5); WHITE BLOOD COUNT 8.8 10^3/ul (4.5-11.0)
[2017-10-15 07:30] LABS: ALB/GLOB RATIO 1.2 (1.1-1.8); ALBUMIN 3.6 g/dL (3.0-4.8); ALT/SGPT 34 U/L (7-56); AST/SGOT 31 U/L (17-59); BLOOD UREA NITROGEN 14 mg/dL (7-21); CALCIUM 8.9 mg/dL (8.4-10.5); GFR AFRICAN-AMERICAN > 60; GFR NON-AFRICAN AMERICAN > 60
[2017-10-15] MEDS: Potassium & Sodium Phosphate PO SCH ×2 (10:01→13:33)
[2017-10-15] MEDS: Cholecalciferol 1,000 INTLU TAB PO SCH (10:03)
--- NOTE | 2017-10-15 13:28 | PN ---
DATE: 10/15/2017 SUBJECTIVE: I saw him this morning in bed. He did not have a great night. He had some sweating and temperature last night of 99. Also, his blood pressure went up a little bit. He is currently on Cozaar, Ecotrin, Flomax, Merrem IV, Motrin, Neutra-Phos, Tylenol, vitamin C and vitamin D. Temperature 98.8, it was as high as 98.9, 99.1, 99.4, 100 so it is a little better but he still sweated out last night. His blood pressure though was as high as 180/90. I will adjust medication for diabetes or call in Dr. Bobo, the surgical assistant. OBJECTIVE: VITAL SIGNS: He has 98.8 temperature now, 71 pulse, 180/90 blood pressure, 18 respiratory rate, 96% O2 sat on room air. HEENT: Head is atraumatic, normocephalic. HEART: Regular rate. LUNGS: Decreased breath sounds, but clear. ABDOMEN: Soft, obese. EXTREMITIES: No edema. He has a sepsis, UTI, fever picture; high potassium; BPH and now he got a little bit temperature and infection. He has a 8.8 white count, it is coming down with 13.7 hemoglobin, 39.5 hematocrit with 152 platelets. Sodium is 147, potassium 4.2, BUN 40, creatinine 0.9. GFR is greater than 60. Sugar is 106, calcium is 8.9, total bilirubin is 0.8, AST is 31, ALT 34, alkaline phosphatase 93. He did have urinary tract infection as per Infectious Disease right now. Continue with the IV antibiotics. CAT scan of his abdomen and pelvis showed no acute findings related according to the clinical presentation, which is good. White count is finally normal. Get a consult with Dr. Bobo for his blood pressure. I will increase his Cozaar to 100 mg. The patient is here for sepsis picture, UTI, fever, hypertension. he can go home today if ok w/ ID Marianna Campos DO [id number]
[2017-10-15 14:53] VITALS: BP 160/90
--- NOTE | 2017-10-15 15:54 | CP.PCM.PN ---
Subjective - Date & Time of Evaluation Date of Evaluation: 10/15/17 Time of Evaluation: 13:55 - Subjective Subjective: Denies fever or chills, no nausea or vomiting, no body aches, no diarrhea. Objective - Vital Signs/Intake and Output Vital Signs (last 24 hours): Temp Pulse Resp BP Pulse Ox 98.8 F 71 18 180/90 H 96 10/15/17 06:00 10/15/17 06:00 10/15/17 06:00 10/15/17 06:00 10/15/17 06:00 Intake and Output: 10/15/17 10/15/17 06:59 18:59 Intake Total 240 Output Total 1775 Balance -1535 - Medications Medications: Current Medications Acetaminophen (Tylenol 325mg Tab) 650 mg PO Q4H PRN PRN Reason: Pain, Mild (1-3) Last Admin: 10/15/17 05:45 Dose: 650 mg Ascorbic Acid (Vitamin C 500 Mg Tab) 1,000 mg PO BID [facility] Last Admin: 10/14/17 18:07 Dose: 1,000 mg Aspirin (Ecotrin) 81 mg PO DAILY [facility] Last Admin: 10/14/17 10:35 Dose: 81 mg Cholecalciferol (Vitamin D) 2,000 intlu PO DAILY [facility] Last Admin: 10/14/17 11:49 Dose: 2,000 intlu Meropenem (Merrem Iv 1 Gm Premix) 50 mls @ 100 mls/hr IVPB Q8 [facility] PRN Reason: Protocol Stop: 10/22/17 08:31 Last Admin: 10/15/17 05:45 Dose: 100 mls/hr Ibuprofen (Motrin Tab) 600 mg PO Q6H PRN PRN Reason: Pain, moderate (4-7) Last Admin: 10/14/17 17:17 Dose: 600 mg Losartan Potassium (Cozaar) 50 mg PO DAILY [facility] Last Admin: 10/14/17 10:33 Dose: 50 mg Potassium Phos/Sodium Phos (Neutra-Phos) 1 pkt PO TID [facility] Stop: 10/16/17 10:01 Last Admin: 10/14/17 18:07 Dose: 1 pkt Tamsulosin HCl (Flomax) 0.4 mg PO BID [facility] Last Admin: 10/14/17 18:07 Dose: 0.4 mg - Labs Labs: 10/15/17 06:00 10/15/17 06:00 PT 12.1 SECONDS (9.4-12.5) 10/12/17 22:48 INR 1.06 (0.93-1.08) 10/12/17 22:48 APTT 26.2 Seconds (25.1-36.5) 10/12/17 22:48 - Constitutional Appears: Non-toxic, Chronically Ill - Head Exam Head Exam: NORMAL INSPECTION - ENT Exam ENT Exam: Mucous Membranes Moist - Neck Exam Neck Exam: absent: Meningismus - Respiratory Exam Respiratory Exam: Decreased Breath Sounds - Cardiovascular Exam Cardiovascular Exam: +S1, +S2 - GI/Abdominal Exam GI & Abdominal Exam: Soft. absent: Tenderness Assessment and Plan - Assessment and Plan (Free Text) Plan: Assessment Systemic Inflammatory responsr syndrome post-cystoscopy, R/O transient bacteremia but cultures have been negative so far HTN BPH atrial fibrillation Plan On Merrem day 3 ; cultures have been negative - can change to PO Cefpodoxime to complete another 7 days of therapy reviewed CT A/P which did not show acute abnormalities discussed with Dr. Campos
[2017-10-15] MEDS ORDERED: Cefpodoxime (Vantin) 200 mg Tab PO SCH (22:00)
--- NOTE | 2017-10-16 01:39 | CON ---
DATE: 10/15/2018 CARDIOLOGY CONSULTATION HISTORY OF PRESENT ILLNESS: The patient is a 71-year-old male who presented with shaking chills, nausea and vomiting. The patient is status post prostate procedure at [facility]; the next day, he developed nausea, fever and diaphoresis. He presented to [place] where he is on IV antibiotics. His hypertension became worse up to 180 systolic due to his inability to take p.o. until today. The patient underwent recent cardiac workup which included a cardiac catheterization that showed no critical coronary lesions, his LV function is normal. SOCIAL HISTORY: The patient does not smoke. REVIEW OF SYSTEMS: A 14-point review of systems is reviewed in detail. No cardiac symptomatology is noted. PHYSICAL EXAMINATION: VITAL SIGNS: On physical exam, blood pressure is 180 systolic, heart rate is in the 90s. NECK: Negative JVD. LUNGS: Without rales. HEART: S1 and S2. EXTREMITIES: Without edema. LABORATORY DATA: EKG is unremarkable. Laboratories are unremarkable. IMPRESSION 1. Hypertension, accelerated due to inability take p.o. medications. 2. Nausea and vomiting. 3. Sepsis. 4. Hypercholesterolemia. IMPRESSION: Given these findings, we will give a temporary trial of topical clonidine patch. We will stop the clonidine patch once the patient is able to take his p.o. hypertensive medications. Royce Bobo MD
--- NOTE | 2017-10-16 05:39 | CON ---
DATE: 10/15/2017 GENITOURINARY CONSULTATION CHIEF COMPLAINT: Fever and chills. HISTORY OF PRESENT ILLNESS: This is a 71-year-old male, who was seen in [facility]. The patient has a history of BPH and an enlarged prostate. He underwent a GreenLight laser vaporization by another urologist at a different hospital. The patient was discharged home, and after the procedure, he was complaining of fever and chills. He was told to go to the emergency room, which he did, and he was admitted for rule out urosepsis. The patient was admitted and started on IV antibiotics. Cultures were sent. He currently is feeling improved. He is unsure if he had any fever today; however, his chills have improved. He has a Allan catheter in place which is draining blood-tinged urine. He denies any flank pain. Denies any nausea or vomiting. consultation was requested regarding the above. PAST MEDICAL HISTORY: Significant for hypertension, BPH, atrial fibrillation, chronic low back pain, herniated disks. MEDICATIONS: Include Catapres, losartan, Ecotrin, tamsulosin, meropenem, Motrin, Neutra-Phos, Tylenol, Vantin, vitamin C and vitamin D. ALLERGIES: NO KNOWN DRUG ALLERGIES. FAMILY HISTORY: Noncontributory. SOCIAL HISTORY: Negative for smoking. Social EtOH. REVIEW OF SYSTEMS: Positives as per the HPI. Currently, the patient is feeling well except for some discomfort from the Allan catheter. No further chills. Positive for low back pain which is chronic. All other systems are negative. PHYSICAL EXAMINATION: GENERAL: The patient is awake and alert. He is answering questions. He is in no acute distress. He has been afebrile. VITAL SIGNS: Temperature of 98.8 today, pulse of 71, BP 160/90. NECK: Supple. There is no adenopathy or mass. CHEST: Reveals a normal inspiratory effort. CARDIAC: Shows positive S1 and S2. There is no peripheral edema noted. ABDOMEN: Soft, nontender, nondistended. There is no hepatosplenomegaly. There is no costovertebral angle tenderness. GENITOURINARY: The phallus is normal. There is a Allan catheter in place draining mildly blood-tinged urine. Scrotum is normal. Testes bilaterally descended, nontender, no masses. Epididymides are normal. EXTREMITIES: No cyanosis or edema. LABORATORY DATA: WBC count was 17.3 on 10/12/2017, which has now come down to 8.8, hemoglobin of 13.7, creatinine 0.9, with a GFR greater than 60. Urinalysis showed positive nitrates, too numerous to count rbc's, 5 to 10 wbc's. On microbiology, urine culture showed no growth. Blood cultures, no growth after 48 hours. On radiologic exam, the patient had a CT scan of the abdomen and pelvis, which showed a Allan catheter balloon filling the entire urinary bladder, which is decompressed. There is a left urinary bladder diverticulum. Kidneys were unremarkable. There were no abscess or other collections noted. IMPRESSION AND PLAN: A 71-year-old male with fever and chills after GreenLight laser. His cultures are apparently negative at this time. The chills have resolved. There is no evidence of any abscess or collection. Possibly, the patient had a reaction to anesthesia during the surgery or some other reason to have chills. He does not appear to have sepsis at this point. Plan would be, if medically okay with Infectious Disease and his primary physician, the patient can be discharged home on oral antibiotics. He should follow up in my office tomorrow morning for Allan removal and a voiding trial. Thank you for allowing me to participate in the care of this patient. I will follow him with you. Alternatively, the patient can call the urologist who performed the procedure and have the Allan catheter removed in his office and follow up there. However, the patient is from [place] and has been to my office in the past. Darnell Penaloza MD
== END 2017-10-15 17:18 | disposition home or self-care (01) | DRG 862 ==
LOC: ED 20:45 → ERH 23:31 → 3RNO 10-13 01:48
PROVIDERS: ADMIT Family Medicine; ATTEND Family Medicine
DX: T81.4XXA Infection following a procedure, initial encounter (principal); A41.9 Sepsis, unspecified organism; N39.0 Urinary tract infection, site not specified; N40.0 Benign prostatic hyperplasia without lower urinary tract symptoms; I48.91 Unspecified atrial fibrillation; I10 Essential (primary) hypertension; E78.00 Pure hypercholesterolemia, unspecified; E11.9 Type 2 diabetes mellitus without complications; E83.39 Other disorders of phosphorus metabolism; E66.9 Obesity, unspecified; Z68.32 Body mass index [BMI] 32.0-32.9, adult; Y83.8 Other surgical procedures as the cause of abnormal reaction of the patient, or of later complication, without mention of misadventure at the time of the procedure